=== PATIENT | female | born 1955 | race Caucasian/White ===

== ENCOUNTER → 2018-02-11 07:52 | Outpatient (CLI) | payer BC | END | disposition home or self-care (01) | LOC: D.MRI 07:52 | DX: M25.562 Pain in left knee (principal) ==

== ENCOUNTER 2018-10-14 08:00 | Outpatient (CLI) | payer BC | END 2018-10-14 09:00 | disposition home or self-care (01) | LOC: D.MAMMO 08:00 | DX: Z12.31 Encounter for screening mammogram for malignant neoplasm of breast (principal) ==

== ENCOUNTER → 2019-12-18 20:09 | Outpatient (CLI) | payer BC | END | disposition home or self-care (01) | LOC: D.MAMMO 12-13 10:15 | PROVIDERS: ATTEND Family Medicine | DX: Z12.31 Encounter for screening mammogram for malignant neoplasm of breast (principal) ==

== ENCOUNTER 2021-04-01 14:25 | Outpatient (CLI) | payer MEDICARE, BC | END 2021-04-01 23:59 | disposition home or self-care (01) | LOC: D.MAMMO 14:25 | PROVIDERS: ATTEND Family Medicine | DX: Z12.31 Encounter for screening mammogram for malignant neoplasm of breast (principal) ==